=== PATIENT | female | born 1955 | race African-American/Black ===

== ENCOUNTER 2023-10-24 11:08 | Outpatient (CLI) | payer OTHER | END 2023-10-24 11:09 | disposition home or self-care (01) | LOC: BICRAD 11:08 | PROVIDERS: ATTEND Student in an Organized Health Care Education/Training Program | DX: M25.512 Pain in left shoulder (principal); M19.012 Primary osteoarthritis, left shoulder; M47.812 Spondylosis without myelopathy or radiculopathy, cervical region | CPT/HCPCS: 72040 ==